=== PATIENT | male | born 1945 | race Hispanic/Latino ===

== ENCOUNTER 2018-12-15 18:09 | Emergency (ER) | payer MEDICARE ==
[~2018-12-15] VITALS: Ht 167.6 cm; Wt 79.4 kg
[~2018-12-15 18:09] MED LIST: ASPIR 8181 MG PO; ETODOLAC400 MG PO; LISINOPRIL10 MG PO; LOVASTATIN20 MG PO; MELOXICAM15 MG PO; VITAMIN D32000 UNI1 PO
[2018-12-15 20:10] VITALS: BP 136/89
== END 2018-12-15 20:14 | disposition home or self-care (01) ==
LOC: ER 18:09
DX: M54.41 Lumbago with sciatica, right side (principal); S39.012A Strain of muscle, fascia and tendon of lower back, initial encounter; G89.29 Other chronic pain
CPT/HCPCS: 99282

== ENCOUNTER 2022-04-30 11:40 | Emergency (ER) | payer MEDICARE ==
[~2022-04-30] VITALS: Ht 170.2 cm; Wt 70.3 kg
[2022-04-30 12:10] LABS: BASOPHILS % 0.3 % (0.0-1.0); EOSINOPHILS # (AUTO) 0.1 (0.0-0.4); EOSINOPHILS % 0.9 % (0.0-6.0); HEMATOCRIT 38.2 % (38.2-49.6); HEMOGLOBIN 12.6 g/dL (14.0-18.0); LYMPHOCYTES % 11.5 % (18.0-39.1); MEAN CORPUSCULAR HEMOGLOBIN 34.5 pg (28-32); MEAN CORPUSCULAR VOLUME 104.7 fL (81-99); MONOCYTES # (AUTO) 0.5 (0.2-0.8); MONOCYTES % 6.1 % (4.4-11.3); PLATELET COUNT 182 x10e3/uL (140-360); RED BLOOD COUNT 3.65 x10e6/uL (4.3-5.7); RED CELL DISTRIBUTION WIDTH 14.4 % (11.7-14.4)
[2022-04-30 12:36] LABS: ALBUMIN 3.5 g/dL (3.5-5.0); ANION GAP 12.1 mmol/L (8-16); CALCIUM 8.5 mg/dL (8.4-10.2); CREATINE KINASE 63 IU/L (30-200); CREATININE, SERUM 0.96 mg/dL (0.72-1.25); POTASSIUM 4.1 mmol/L (3.5-5.1)
[2022-04-30] MEDS ORDERED: ONDANSETRON HCL INJ 2MG/ML 2ML 2 MG/ML VIAL IV STA (14:29)
[2022-04-30] MEDS ORDERED: FAMOTIDINE 20 MG/2 ML VIAL IV STA (14:29)
== END 2022-04-30 15:35 | disposition home or self-care (01) ==
LOC: ER 13:09
DX: R05.9 Cough, unspecified (principal); J06.9 Acute upper respiratory infection, unspecified; M54.9 Dorsalgia, unspecified; G89.29 Other chronic pain; Z20.822 Contact with and (suspected) exposure to COVID-19; R94.31 Abnormal electrocardiogram [ECG] [EKG]
CPT/HCPCS: 36415; 71045; 80053; 82550; 82553; 84484; 85025; 93005; 99283; J2405; U0002